=== PATIENT | female | born 1960 | race Caucasian/White ===

== ENCOUNTER 2016-12-02 14:41 | Emergency (ER) | payer OTHER ==
[2016-12-02] MEDS ORDERED: Ketorolac 30 MG/ML SDV IVPUSH ONE (15:20)
[2016-12-02] MEDS ORDERED: Ondansetron 4 MG/2 ML SDV IVPUSH ONE (15:21)
[2016-12-02] MEDS ORDERED: Sodium Chloride 0.9% 1,000 ML IV SCH (15:30)
--- NOTE | 2016-12-02 17:52 | EDM.PDOC ---
<Felipe Nielson - Last Filed: 12/02/16 17:48> ED HPI GENERAL MEDICAL PROBLEM - General Chief Complaint: Abdominal Pain Stated Complaint: STOMACH/LOWER ABDOMIN PAIN Time Seen by Provider: 12/02/16 15:14 Source of Information: Reports: Patient History Limitations: Reports: No Limitations - History of Present Illness INITIAL COMMENTS - FREE TEXT/NARRATIVE: History of present illness: [55-year-old female presenting with the development of right lower quadrant abdominal pain and discomfort over the last 24 hours. Not had anything like this before. She denies any history of kidney stones. She did have an episode of nausea and vomiting yesterday but none today. No constipation diarrhea or dysuria. She also noted last night that she herself wheezing when she was breathing when she was sleeping last night. She has no other complaints her weight has been stable.] Review of systems: As per history of present illness and below otherwise all systems reviewed and negative. Past medical history: As per history of present illness and as reviewed below otherwise noncontributory. Surgical history: As per history of present illness and as reviewed below otherwise noncontributory. Social history: No reported history of drug or alcohol abuse. Family history: As per history of present illness and as reviewed below otherwise noncontributory. Physical exam: HEENT: Atraumatic, normocephalic, pupils reactive, negative for conjunctival pallor or scleral icterus, mucous membranes moist, throat clear, neck supple, nontender, trachea midline. Lungs: Clear to auscultation, breath sounds equal bilaterally but may be diminished in the bases. Heart: S1S2, regular, negative Abdomen: She has minor tenderness to palpation in the right suprapubic area no masses appreciated Pelvis: Stable nontender. Genitourinary: Deferred. Rectal: Deferred. Extremities: Atraumatic, negative for cords or calf pain. Neurovascular unremarkable. Neuro: Awake, alert, oriented. Cranial nerves II through XII unremarkable. Cerebellum unremarkable. Motor and sensory unremarkable throughout. Exam nonfocal. Diagnostics: [Abdominal pelvic CT without contrast is demonstrating a 15 x 14 x 11 cm cystic structure seeming to arise from the right ovary. Ultrasound has been ordered to evaluate this further. Chest x-ray is also ordered and pending. CBC showing anemia with a hemoglobin of 10.9 and her alkaline phosphatase is slightly elevated. She has thus far been hemodynamically stable and with IV fluids and Toradol is essentially pain-free.] Therapeutics: [IV fluids and Toradol have been provided] Impression: [Right pelvic mass arising from the right ovary] Plan: [Ultrasound is pending along with chest x-ray the ER physician coming on will need to assume care as per shift is done shortly. I believe this will be Dr. Tatum.] Definitive disposition and diagnosis as appropriate pending reevaluation and review of above. Right Lower Abdomen Pain Score (Numeric/FACES): 7 Past Medical History Cardiovascular History: Reports: Hypertension Genitourinary History: Reports: Pyelonephritis - Infectious Disease History Infectious Disease History: Reports: Chicken Pox - Past Surgical History GI Surgical History: Reports: Cholecystectomy Social & Family History - Tobacco Use Smoking Status *Q: Never Smoker - Caffeine Use Caffeine Use: Reports: Coffee, Tea - Recreational Drug Use Recreational Drug Use: No Course - Vital Signs Last Recorded V/S: Last Vital Signs Temp 36.2 C 12/02/16 15:06 Pulse 72 12/02/16 18:19 Resp 20 12/02/16 16:01 BP 170/77 H 12/02/16 18:19 Pulse Ox 97 12/02/16 18:19 - Orders/Labs/Meds Orders: Active Orders 24 hr Category Date Time Status Abdomen Pelvis wo Cont [CT] Stat Exams 12/02/16 15:20 Taken CXR [Chest 2V] [CR] Stat Exams 12/02/16 17:45 Taken Pelvis Non OB Comp [US] Stat Exams 12/02/16 17:53 Taken Transvaginal Non OB [US] Stat Exams 12/02/16 17:46 Taken Sodium Chloride 0.9% [Normal Saline] 1,000 ml Med 12/02/16 15:30 Active IV ASDIRECTED Medication Orders Sodium Chloride (Normal Saline) 1,000 mls @ 500 mls/hr IV ASDIRECTED JACKIE Last Admin: 12/02/16 15:37 Dose: 500 mls/hr Labs: Laboratory Tests 12/02/16 12/02/16 12/02/16 Range/Units 15:35 15:35 16:08 WBC 7.3 (4.5-11.0) K/uL RBC 4.19 (3.30-5.50) M/uL Hgb 10.9 L (12.0-15.0) g/dL Hct 34.2 L (36.0-48.0) % MCV 82 (80-98) fL MCH 26 L (27-31) pg MCHC 32 (32-36) % Plt Count 314 (150-400) K/uL Neut % (Auto) 61 (36-66) % Lymph % (Auto) 26 (24-44) % Mayes % (Auto) 10 H (2-6) % Eos % (Auto) 2 (2-4) % Baso % (Auto) 1 (0-1) % Sodium 142 (140-148) mmol/L Potassium 4.0 (3.6-5.2) mmol/L Chloride 107 (100-108) mmol/L Carbon Dioxide 25 (21-32) mmol/L Anion Gap 9.9 (5.0-14.0) mmol/L BUN 15 (7-18) mg/dL Creatinine 1.1 H (0.6-1.0) mg/dL Est Cr Clr Drug Dosing 49.90 mL/min Estimated GFR (MDRD) 52 L (>60) Glucose 89 (74-106) mg/dL Calcium 8.5 (8.5-10.1) mg/dL Total Bilirubin 0.4 (0.2-1.0) mg/dL AST 25 (15-37) U/L ALT 43 (12-78) U/L Alkaline Phosphatase 138 H (46-116) U/L Total Protein 7.2 (6.4-8.2) g/dL Albumin 3.6 (3.4-5.0) g/dL Globulin 3.6 H (2.3-3.5) g/dL Albumin/Globulin Ratio 1.0 L (1.2-2.2) Urine Color Yellow Urine Appearance Slightly cloudy Urine pH 5.0 (4.5-8.0) Ur Specific Hoffmeister 1.025 (1.008-1.030) Urine Protein Negative (NEGATIVE) mg/dL Urine Glucose (UA) Normal (NEGATIVE) mg/dL Urine Ketones Negative (NEGATIVE) mg/dL Urine Occult Blood Negative (NEGATIVE) Urine Nitrite Negative (NEGATIVE) Urine Bilirubin Small (NEGATIVE) Urine Urobilinogen 1 (NORMAL) mg/dL Ur Leukocyte Esterase Negative (NEGATIVE) Urine RBC 0-5 (0-5) Urine WBC 5-10 H (0-5) Ur Epithelial Cells Moderate Amorphous Sediment Not seen Urine Bacteria Many Urine Mucus Few Meds: Medications Generic Name Dose Route Start Last Admin Trade Name Freq PRN Reason Stop Dose Admin Sodium Chloride 1,000 mls @ 500 mls/hr 12/02/16 15:30 12/02/16 15:37 Normal Saline IV 500 mls/hr ASDIRECTED JACKIE Administration Discontinued Medications Generic Name Dose Route Start Last Admin Trade Name Freq PRN Reason Stop Dose Admin Ketorolac Tromethamine 30 mg 12/02/16 15:20 12/02/16 15:34 Toradol IVPUSH 12/02/16 15:21 30 mg ONETIME ONE Administration Ondansetron HCl 4 mg 12/02/16 15:21 12/02/16 15:34 Zofran IVPUSH 12/02/16 15:22 4 mg ONETIME ONE Administration Departure - Departure Disposition: Home, Self-Care 01 Clinical Impression: Abdominal pain, Pelvic mass - Discharge Information Forms: ED Department Discharge Additional Instructions: The cyst and your pelvis is 15 x 14 x 11 cm and is a septated cyst. The radiologist report on the ultrasound is still pending however I discussed the ultrasound with the nuclear medicine technician. It is likely this is a malignancy. It's important that you follow up in the very near future with a gynecologic oncologist. Your family doctor can help you and I suggest you call him or her first thing tomorrow morning. You received a prescription for Percocet 5/325 #20 tablets. Take this one or 2 tablets every 4 hours as needed for pain. This medication can cause sedation and impair driving so use caution. Do not drink alcohol while taking this medicine <Sterling Tatum - Last Filed: 12/02/16 19:37> ED ROS GENERAL - Review of Systems Review Of Systems: ROS reveals no pertinent complaints other than HPI. ED EXAM, RENAL/ - Physical Exam Exam: See Below General Appearance: Alert, No Apparent Distress Course - Re-Assessments/Exams Free Text/Narrative Re-Assessment/Exam: 12/02/16 19:28 This patient was received from Dr. Collins at 1800 hrs. she has a 55-year-old woman found to have a 15 x 14 x 11 cm mass in the pelvis which appears to be arising from the right ovary. A pelvic ultrasound was pending. That ultrasound has now been completed and the mass appears to be a septated cyst. Case was discussed with the patient. Her doctor is in the [place] area where she lives. She is here on vacation for a week. I explained that it is a little very large cyst and it has characteristics on ultrasound that suggest it might be malignant. She will need to see a gynecologic oncologist in the very near future. I recommend that she call her family doctor tomorrow morning. We are sending the CT and ultrasound on a disc as well as lab tests and notes. She will be sent home with Percocet also Departure - Departure Time of Disposition: 19:32 Condition: Fair
[2016-12-02 18:19] VITALS: BP 170/77
--- NOTE | 2016-12-03 13:47 | CR ---
Chest 2V INDICATION: subjective wheezing FINDINGS: Heart size at the upper limits of normal. Mild mixed interstitial and airspace opacities i n both lungs. Small bilateral pleural effusions. Pulmonary vascularity at the upper limits of normal . Consider CHF or atypical infectious processes. Short interval follow-up chest x-ray recommended.
== END 2016-12-02 20:15 | disposition home or self-care (01) ==
LOC: JP.ED 14:41
DX: R10.31 Right lower quadrant pain (principal); I10 Essential (primary) hypertension; Z98.890 Other specified postprocedural states; R19.03 Right lower quadrant abdominal swelling, mass and lump; J90 Pleural effusion, not elsewhere classified
CPT/HCPCS: 36415; 71020; 74176; 76830; 76856; 80053; 81001; 85025; 96361; 96374; 96375; 99285; J1885; J2405; J7040